=== PATIENT | female | born 1955 | race Caucasian/White ===

== ENCOUNTER 2016-10-02 13:49 | Emergency (ER) | payer OTHER ==
[~2016-10-02] VITALS: Ht 167.6 cm; Wt 61.0 kg
[~2016-10-02 13:49] MED LIST: ASPCH81X PO; MULT-506 PO; RXC5 PO; SENNTAB4 PO; TYLOTC500 PO
[2016-10-02 13:57] VITALS: TEMP 36.9; Ht 167.6 cm; Wt 61.0 kg
--- NOTE | 2016-10-02 14:56 | DIAGNOSTIC IMAGING REPORT ---
LEFT KNEE 3 VIEWS CLINICAL HISTORY: Left knee pain and swelling. FINDINGS: AP, crosstable lateral, and sunrise views of the left knee are compared to study dated 09/12/2015. The skeletal structures are osteopenic. No fracture is seen. A left knee arthroplasty is in near-anatomic alignment. There has been undersurface remodeling of the patella. No periprosthetic lucency is identified. A joint effusion is noted. Mild prepatellar soft tissue swelling is observed. IMPRESSION: 1. Prepatellar soft tissue swelling and joint effusion. No acute bony abnormality is identified. 2. A left knee arthroplasty is in near anatomic alignment. Electronically signed by: Jeramy Chatman M.D. 10/02/2016 2:54 PM Dictated Date/Time: 10/02/2016 2:53 PM
[2016-10-02 15:47] VITALS: BP 118/77; PULSE 89; O2SAT 98
--- NOTE | 2016-10-03 21:25 | EMERGENCY ROOM VISIT NOTE ---
ED Visit Note First contact with patient: 14:04 Chief Complaint: Left knee pain. History of Present Illness: Ms. Modi is a 60-year-old white female who ambulates into the ED accompanied by her complaining of knee pain and swelling. Historically patient reports she is status post total left knee arthroplasty from September 2015. She had a medications with her surgical procedure or the rehabilitation. Patient reports approximately 3 weeks ago she noted a twinge of pain just superior to the knee exiting her car. She developed some pain and swelling just superior to the anterior knee. She used ice and ibuprofen for discomfort and the swelling resolved within a day. This happened initially 3 more times last 3 weeks. She did call her orthopedic physician reports she cannot be seen approximately a week and a half. Her last episode of getting out of the car with pain was approximately 3 days ago. Once again she developed swelling. She has used ibuprofen and ice and her symptoms have not resolved which prompted her ED visit [facility]. Currently she is complaining of generalized achy sensation just superior to the anterior knee. She rates this discomfort 4/10. The pain is nonradiating. Her pain worsens with the last few degrees of extension and flexion beyond 90. She also notes some mild increased pain with palpation and ambulation. Rest and keeping her knee slightly bent improves her pain. She has been using ibuprofen with minimal relief of her discomfort but not or swelling. Associated she also reports that she feels like her knee is generally weaker and she had proceeded prior to these events. She denies recent direct trauma, chronic repetitive trauma, fevers, chills, skin eruptions, skin color changes, hip pain, lower leg pain, ankle pain, leg numbness/tingling. Review of Systems: As noted above in history of present illness. 5 body systems were reviewed and found to be negative as noted above. Past Medical History: Arthritis and status post left knee arthroplasty, appendectomy, tonsillectomy. Current Medications: Multivitamins. Allergies to Medications: Celecoxib, hydrocodone. Social History: Patient is currently employed; she feels safe in her home environment; she denies tobacco use. Physical Examination: Vital Signs: Date Time Temp Pulse Resp B/P Pulse Ox O2 Delivery O2 Flow Rate FiO2 10/02/16 15:47 89 20 118/77 98 10/02/16 13:57 36.9 92 16 123/57 97 GENERAL: 60-year-old female in mild distress due to pain, nontoxic-appearing, afebrile and hemodynamically stable. NEUROLOGICAL: Awake, alert and oriented to person, place and time. Answering questions appropriately and following commands. Normal gait. SKIN: Warm, dry and pink. No soft tissue eruptions or trauma noted. LEFT LOWER EXTREMITY: No gross bony deformity. No shortening or malrotation. No tenderness over the hip, thigh, lower leg, ankle or foot. Mild tenderness and swelling noted just superior to the anterior knee without erythema. There is a mild prepatellar tissue swelling once again without erythema. Positive ballottement test mild tenderness over the superior aspect of the knee in the area that is swollen. No joint line tenderness. No laxity of the collateral or cruciate ligaments. No tenderness over the patellar tendon or tibial tuberosity. Decreased range of motion in the last few degrees of hyperextension and she is only has about 90% of flexion in the knee. Posteriorly there is no palpable masses, tenderness or swelling. Throughout the lower leg the skin was warm and pink and capillary refill is brisk. She does have full range of motion in plantar flexion and dorsiflexion of the ankle against resistance. Distal pulses were intact and equal bilaterally. She is able to distinguish light sensations through all dermatomes. ED Course: Patient is assessed as noted above. Left Knee X-Rays: Were read by myself and shows no acute fractures or dislocations. The orthoplasty is near perfect anatomical alignment. Radiologist notes that there is remodeling of the undersurface of the patella. Joint effusion and mild prepatellar swelling noted. Patient was given ice for pain and comfort; she was offered pain medications and refused. Patient was offered a knee immobilizer and refused and then except an Yeison bandage. Patient was offered crutches and/or walker and refused. Patient was educated about tonight's findings and instructed on her treatment plan; she verbalizes understanding and agreement with this plan. Clinical Impression: Left knee pain and swelling. Disposition: Patient discharged home in stable condition accompanied by her ; prior to departure she was reassessed and subjectively reported she was feeling better and rated her discomfort 2/10 Plan: Comfort measures were discussed with the patient including rest, ice, elevation and ibuprofen use. Patient was encouraged to keep her upcoming a follow-up appointment with orthopedics. Patient was encouraged ED for worsening/uncontrolled pain, uncontrolled swelling , fevers, skin redness or any new/concerning symptoms.
== END 2016-10-02 15:48 | disposition home or self-care (01) ==
LOC: C.EDB 13:54 → C.EDD 15:48
DX: M25.562 Pain in left knee (principal); M25.462 Effusion, left knee; Z96.652 Presence of left artificial knee joint; Z90.49 Acquired absence of other specified parts of digestive tract; M19.90 Unspecified osteoarthritis, unspecified site